=== PATIENT | male | born 1980 | race Two or more races ===

== ENCOUNTER 2019-01-01 13:16 | Outpatient (CLI) | payer OTHER | END 2019-01-01 13:22 | disposition home or self-care (01) | LOC: RAD 13:16 | DX: R06.09 Other forms of dyspnea (principal) ==

== ENCOUNTER → 2019-07-29 | Outpatient (CLI) | payer OTHER | END | disposition home or self-care (01) | LOC: NUCLEAR 16:05 → RAD 16:05 | DX: M99.01 Segmental and somatic dysfunction of cervical region (principal); M99.02 Segmental and somatic dysfunction of thoracic region; M99.03 Segmental and somatic dysfunction of lumbar region; M99.04 Segmental and somatic dysfunction of sacral region ==

== ENCOUNTER 2019-11-20 12:34 | Emergency (ER) | payer OTHER ==
[~2019-11-20] VITALS: Ht 188 cm; Wt 77.1 kg
== END 2019-11-20 18:00 | disposition home or self-care (01) ==
LOC: ER 12:34
DX: J11.1 Influenza due to unidentified influenza virus with other respiratory manifestations (principal)

== ENCOUNTER 2021-01-10 11:03 | Outpatient (CLI) | payer OTHER | END 2021-01-10 11:25 | disposition home or self-care (01) | LOC: MRI 11:03 | PROVIDERS: ATTEND Specialist | DX: M15.0 Primary generalized (osteo)arthritis (principal); M54.5 Low back pain | CPT/HCPCS: 72148 ==

== ENCOUNTER 2021-12-25 14:42 | Outpatient (CLI) | payer OTHER | END 2021-12-25 14:53 | disposition home or self-care (01) | LOC: RAD 14:42 | PROVIDERS: ATTEND Orthopaedic Surgery | DX: M79.641 Pain in right hand (principal) ==